=== PATIENT | male | born 1990 ===

== ENCOUNTER 2017-06-02 11:13 | Emergency (ER) | payer BC, OTHER ==
--- NOTE | 2017-06-02 11:37 | EDPHY ---
HPI/HX/ROS/PE/MDM Narrative: CHIEF COMPLAINT: Right thigh pain HPI: The patient is a 26-year-old male with no significant past medical history. 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. Just prior to arrival, while at work, the patient was assisting with a large patient that was having a bad reaction to sedation and he suffered what sounds like a hyper extension injury of his right hip/thigh. He complains of pain in his proximal quadriceps. He is able to walk and bend his knee without difficulty. REVIEW OF SYSTEMS: Aside from elements discussed in the HPI, a comprehensive 10-point review of systems was reviewed and is negative. PMH: None significant. 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 Denies drug abuse. PHYSICAL EXAM: General:Patient is alert, in no acute distress. Extremities: Left leg unaffected. Right leg: Normal to inspection, mild tenderness along the quadriceps muscle mid thigh. Quadriceps tendon intact. Normal 5/5 strength to hip flexion, knee flexion and extension. Neuro: Oriented x3. Normal motor function. Normal sensory function. MDM: This healthy patient presents with what appears to be a quadriceps strain. I see no signs of fracture or tendon rupture. The patient was offered IM NSAIDs but declines. He will need to follow up with [facility] for return to work but I suspect this will ultimately be a minor injury. General Time Seen by Provider: 06/02/17 11:28 Allergies/Adverse Reactions: No Known Allergies Allergy (Unverified 06/02/17 11:21) Home Medications: Medication Instructions Recorded Subcutaneous Insulin Pump [Insulin 1 each [facility] AD 02/24/13 Pump] Ramipril 06/02/17 Departure - Departure Disposition: Home, Routine, Self-Care Clinical Impression: Quadriceps strain Condition: Good Instructions: Muscle Strain (ED) Additional Instructions: Follow-up with [facility] as directed. Use ibuprofen, heating pad and tried to rest leg as much as possible. Referrals: Isaura Adams MD [Primary Care Provider] - As per Instructions Stand Alone Forms: Work [facility] Follow Up
== END 2017-06-02 11:55 | disposition home or self-care (01) ==
LOC: CED 11:13
DX: S76.111A Strain of right quadriceps muscle, fascia and tendon, initial encounter (principal); X58.XXXA Exposure to other specified factors, initial encounter; Y92.69 Other specified industrial and construction area as the place of occurrence of the external cause; Y99.0 Civilian activity done for income or pay; Y93.89 Activity, other specified